=== PATIENT | female | born 1990 ===

== ENCOUNTER 2017-01-17 05:22 | Emergency (ER) | payer BC ==
[2017-01-17] MEDS ORDERED: Sodium Chloride 0.9% 1,000 ML IV STA (05:58)
--- NOTE | 2017-01-17 06:05 | ED PDOC ---
Arrival/HPI <Jonathan Velazquez - Last Filed: 01/17/17 06:22> - General Historian: Patient - History of Present Illness Time/Duration: Other (yesterday) Symptom Course: Intermittent Quality: Burning, Other (sharp) Severity Level: 7 <Remington Watkins - Last Filed: 01/17/17 06:53> - General Chief Complaint: Abdominal Pain Time Seen by Provider: 01/17/17 05:36 - History of Present Illness Narrative History of Present Illness (Text): 01/17/17 05:59 This is a 26 year old female with PMH asthma who presents complaining of epigastric pain. Patient states that it started earlier yesterday. Pain is described as a burning, sharp pain 7/10 currently, but was 10/10 earlier. Patient normally will intermittently gets epigastric pain intermittently; however, the pain had associated nausea and vomiting this time. Nausea/vomiting are not normally experienced. Patient had two episodes of vomiting. The first had food contents and a tinge of blood. The second one was blue which was the color of the Tums she just took. Patient states that sometimes she will experience this pain after meals. Patient denied changes in stool character/ habits. Patient states that she takes Tylenol for her abdominal pain with intermittent relief. PMH: Asthma PSH: Denies Allergies: PCN Social: Denies tobacco, alcohol, drugs. PMD: Dr. Longoria (Remington Watkins) Past Medical History - Provider Review Nursing Documentation Reviewed: Yes - Cardiac Hx Cardiac Disorders: No - Pulmonary Hx Asthma: Yes - Neurological Hx Neurological Disorder: No - HEENT Hx HEENT Disorder: No - Renal Hx Renal Disorder: No - Endocrine/Metabolic Hx Endocrine Disorders: No - Hematological/Oncological Hx Blood Disorders: No - Integumentary Hx Dermatological Disorder: No - Musculoskeletal/Rheumatological Hx Musculoskeletal Disorders: No - Gastrointestinal Hx Gastrointestinal Disorders: No - Genitourinary/Gynecological Hx Genitourinary Disorders: No - Psychiatric Hx Psychophysiologic Disorder: No Hx Substance Use: No <Remington Watkins - Last Filed: 01/17/17 06:53> Family/Social History - Physician Review Nursing Documentation Reviewed: Yes Family/Social History: No Known Family HX Smoking Status: Never Smoked Hx Alcohol Use: No Hx Substance Use: No <Remington Watkins - Last Filed: 01/17/17 06:53> Allergies/Home Meds <Jonathan Velazquez - Last Filed: 01/17/17 06:22> <Remington Watkins - Last Filed: 01/17/17 06:53> Allergies/Adverse Reactions: Allergies Penicillins Allergy (Verified 01/17/17 05:36) RASH Home Medications: Home Meds Medication Instructions Recorded Confirmed Mometasone/Formoterol [Dulera 100 1 pfu INH DAILY 01/17/17 01/17/17 Mcg/5 Mcg Inhaler] Review of Systems - Physician Review All systems were reviewed & negative as marked: Yes <Jonathan Velazquez - Last Filed: 01/17/17 06:22> - Review of Systems Constitutional: Normal Eyes: Normal ENT: Normal Respiratory: Normal Cardiovascular: Normal Gastrointestinal: Abdominal Pain (epigastric), Nausea, Vomiting, Hematemesis ( tinged in the first episode of vomit). absent: Stool Changes, Constipation, Diarrhea Genitourinary Female: Normal Musculoskeletal: Normal Skin: Normal Neurological: Normal Endocrine: Normal Hemo/Lymphatic: Normal Psychiatric: Normal <Remington Watkins S - Last Filed: 01/17/17 06:53> Physical Exam Vital Signs Reviewed: Yes Temperature: Afebrile Blood Pressure: Normal Pulse: Regular Respiratory Rate: Normal Appearance: Positive for: Well-Appearing Pain Distress: None Mental Status: Positive for: Alert and Oriented X 3 - Systems Exam Head: Present: Atraumatic, Normocephalic Pupils: Present: PERRL Extroacular Muscles: Present: EOMI Conjunctiva: Present: Normal Mouth: Present: Moist Mucous Membranes Neck: Present: Normal Range of Motion Respiratory/Chest: Present: Clear to Auscultation, Good Air Exchange. No: Accessory Muscle Use Cardiovascular: Present: Regular Rate and Rhythm, Normal S1, S2 Abdomen: Present: Tenderness (epigastric), Normal Bowel Sounds. No: Distention Upper Extremity: Present: Normal Inspection, NORMAL PULSES. No: Edema Lower Extremity: Present: Normal Inspection, NORMAL PULSES. No: Edema, CALF TENDERNESS Neurological: Present: GCS=15, CN II-XII Intact Skin: Present: Warm, Dry, Normal Color. No: Rashes Psychiatric: Present: Alert, Oriented x 3 <Debbiluis danielRemington Jeronimo - Last Filed: 01/17/17 06:53> Vital Signs Temp Pulse Resp BP Pulse Ox 01/17/17 05:53 99.5 F 79 18 116/61 100 Medical Decision Making <CarolineJonathan - Last Filed: 01/17/17 06:22> - Transfer of Care Patient signed out to Dr:: Dr. Medina Other: Pending labs/ultrasound/re-assess/final disposition <Remington Watkins - Last Filed: 01/17/17 06:53> ED Course and Treatment: Impression: Pt seen and evaluated with medical radiation therapist. Pt, whose past medical history includes asthma, presented for intermittent epigastric pain with nausea and vomiting. Aware and agree with clinical findings, plan, and management. Plan: -- Labs -- IV fluids -- Zofran --Pepcid -- Reassess and disposition (Jonathan Velaqzuez) 01/17/17 06:13 CBC, CMP, NS 1L bolus Zofran 4 mg IV Pepcid 20 mg IV Urine negative Pain did not improve very much with IV Pepcid, so Abdominal US ordered. (Remington Watkins) - Lab Interpretations Lab Results: 01/17/17 06:10 01/17/17 06:10 Lab Results 01/17/17 06:10: Sodium 139, Potassium 3.9, Chloride 102, Carbon Dioxide 27, Anion Gap 14, BUN 14, Creatinine 0.8, Est GFR ( Amer) > 60, Est GFR (Non- Af Amer) > 60, Random Glucose 86, Calcium 8.7, Total Bilirubin 0.8, AST 42 H, ALT 88 H, Alkaline Phosphatase 82, Total Protein 7.2, Albumin 4.0, Globulin 3.2 , Albumin/Globulin Ratio 1.3 01/17/17 06:10: WBC 7.8, RBC 4.80, Hgb 14.2, Hct 40.9, MCV 85.2, MCH 29.6, MCHC 34.7, RDW 13.1, Plt Count 216, MPV 10.0, Gran % 82.0 H, Lymph % (Auto) 11.8 L, [place]kin % (Auto) 4.6, Eos % (Auto) 1.5, Baso % (Auto) 0.1, Gran # 6.37, Lymph # 0.9 L, [place]kin # 0.4, Eos # 0.1, Baso # 0.01 - RAD Interpretation Radiology Orders: 01/17/17 06:46 ABDOMEN COMPLETE [US] Stat - Medication Orders Current Medication Orders: Sodium Chloride (Sodium Chloride 0.9%) 1,000 mls @ 999 mls/hr IV .Q1H1M STA Stop: 01/17/17 06:58 Last Admin: 01/17/17 06:16 Dose: 999 mls/hr Discontinued Medications Famotidine (Pepcid) 20 mg IVP STAT STA Stop: 01/17/17 05:59 Last Admin: 01/17/17 06:16 Dose: 20 mg Ondansetron HCl (Zofran Inj) 4 mg IVP STAT STA Stop: 01/17/17 05:59 Last Admin: 01/17/17 06:16 Dose: 4 mg - PA / [employer] / Resident Statement / has reviewed & agrees with the documentation as recorded. / has examined the patient and agrees with the treatment plan. <Jonathan Velazquez - Last Filed: 01/17/17 06:22> Disposition/Present on Arrival <Jonathan Velazquez - Last Filed: 01/17/17 06:22> - Present on Arrival Any Indicators Present on Arrival: No History of DVT/PE: No History of Uncontrolled Diabetes: No Urinary Catheter: No History of Decub. Ulcer: No History Surgical Site Infection Following: None - Disposition Have Diagnosis and Disposition been Completed?: No Disposition Time: 07:00 <Remington Watkins - Last Filed: 01/17/17 06:53> - Disposition Diagnosis: Abdominal pain Condition: STABLE Referrals: Jigna Longoria MD [Medical Doctor] - Follow up with primary Forms: [email or web address] (Japanese)
[2017-01-17 06:20] LABS: BASO # 0.01 K/mm3 (0.0-2.0); BASO % 0.1 % (0.0-3.0); EOS # 0.1 (0.0-0.7); EOS % 1.5 % (1.5-5.0); GRAN # 6.37 (1.4-6.5); HEMATOCRIT 40.9 % (36.0-48.0); LYMPH # 0.9 (1.2-3.4); LYMPH % 11.8 % (22.0-35.0); MEAN CELL VOLUME 85.2 fl (80.0-105.0); MEAN CORPUSCULAR HEMOGLOBIN 29.6 pg (25.0-35.0); MEAN CORPUSCULAR HGB CONC 34.7 g/dl (31.0-37.0); MONO # 0.4 (0.1-0.6); MONO % 4.6 % (1.0-6.0); RED CELL DISTRIBUTION WIDTH 13.1 % (11.5-14.5); WHITE BLOOD COUNT 7.8 10^3/ul (4.5-11.0)
[2017-01-17 06:31] LABS: ALB/GLOB RATIO 1.3 (1.1-1.8); ALKALINE PHOSPHATASE 82 U/L (38-126); ALT/SGPT 88 U/L (7-56); AST/SGOT 42 U/L (14-36); BILIRUBIN,TOTAL 0.8 mg/dL (0.2-1.3); BLOOD UREA NITROGEN 14 mg/dL (7-21); CALCIUM 8.7 mg/dL (8.4-10.5); CARBON DIOXIDE 27 mmol/L (21-33); CHLORIDE 102 mmol/L (98-107); GFR AFRICAN-AMERICAN > 60; GLUCOSE,RANDOM 86 mg/dL (70-110); POTASSIUM 3.9 mmol/L (3.6-5.0); SODIUM 139 mmol/L (132-148); TOTAL PROTEIN 7.2 g/dL (5.8-8.3)
--- NOTE | 2017-01-17 07:23 | US ---
HISTORY: abdominal pain COMPARISON: None. TECHNIQUE: Sonographic evaluation of the abdomen. FINDINGS: LIVER: Measures 17.7 cm. Normal echogenicity of the liver parenchyma. No mass. No intrahepatic bile duct dilatation. GALLBLADDER: Unremarkable. No gallstones. COMMON BILE DUCT: Measures 6 mm. No stones. No dilatation. PANCREAS: Unremarkable as visualized. No mass. No ductal dilatation. RIGHT KIDNEY: Measures 11.2cm. Normal echogenicity. No calculus, mass, or hydronephrosis. LEFT KIDNEY: Measures 11.4cm. Normal echogenicity. No calculus, mass, or hydronephrosis. SPLEEN: Normal in size and contour. No mass. AORTA: No aneurysmal dilatation. IVC: Unremarkable. OTHER FINDINGS: None. IMPRESSION: Unremarkable abdominal ultrasound examination. No evidence of cholelithiasis or cholecystitis.
--- NOTE | 2017-01-17 07:30 | ED PDOC ---
Physical Exam Vital Signs Reviewed: Yes Vital Signs Temp Pulse Resp BP Pulse Ox 01/17/17 08:40 98.6 F 73 16 100/60 98 01/17/17 07:36 58 L 16 100/55 L 99 01/17/17 05:53 99.5 F 79 18 116/61 100 Temperature: Afebrile Blood Pressure: Normal Pulse: Regular Respiratory Rate: Normal Appearance: Positive for: Well-Appearing, Non-Toxic, Comfortable Pain Distress: None Mental Status: Positive for: Alert and Oriented X 3 Medical Decision Making ED Course and Treatment: 01/17/17 07:00 Case signed out to me from Dr. Velazquez. Pending Ultrasound and disposition. 01/17/17 07:24 Abdomen Ultrasound Creator : Mayank Cortez MD IMPRESSION: Unremarkable abdominal ultrasound examination. No evidence of cholelithiasis or cholecystitis. 01/17/17 08:35 On re-evaluation, patient feels better and is in no acute distress. I have discussed the results and plan with the patient, (pt aware of leevated lfts and need for outpt gi follow up) who expresses understanding. Patient in agreement with plan to be discharged home. Patient is stable for discharge. Patient was instructed to follow up with physician/clinic in 1-2 days or return if symptoms worsen or new concerning symptoms arise. 01/17/17 13:44 - Lab Interpretations Lab Results: 01/17/17 06:10 01/17/17 06:10 Lab Results 01/17/17 06:10: Sodium 139, Potassium 3.9, Chloride 102, Carbon Dioxide 27, Anion Gap 14, BUN 14, Creatinine 0.8, Est GFR ( Amer) > 60, Est GFR (Non- Af Amer) > 60, Random Glucose 86, Calcium 8.7, Total Bilirubin 0.8, AST 42 H, ALT 88 H, Alkaline Phosphatase 82, Total Protein 7.2, Albumin 4.0, Globulin 3.2 , Albumin/Globulin Ratio 1.3 01/17/17 06:10: WBC 7.8, RBC 4.80, Hgb 14.2, Hct 40.9, MCV 85.2, MCH 29.6, MCHC 34.7, RDW 13.1, Plt Count 216, MPV 10.0, Gran % 82.0 H, Lymph % (Auto) 11.8 L, [place] % (Auto) 4.6, Eos % (Auto) 1.5, Baso % (Auto) 0.1, Gran # 6.37, Lymph # 0.9 L, [place] # 0.4, Eos # 0.1, Baso # 0.01 - RAD Interpretation Radiology Orders: 01/17/17 06:46 ABDOMEN COMPLETE [US] Stat - Medication Orders Current Medication Orders: Discontinued Medications Famotidine (Pepcid) 20 mg IVP STAT STA Stop: 01/17/17 05:59 Last Admin: 01/17/17 06:16 Dose: 20 mg Sodium Chloride (Sodium Chloride 0.9%) 1,000 mls @ 999 mls/hr IV .Q1H1M STA Stop: 01/17/17 06:58 Last Admin: 01/17/17 06:16 Dose: 999 mls/hr Ondansetron HCl (Zofran Inj) 4 mg IVP STAT STA Stop: 01/17/17 05:59 Last Admin: 01/17/17 06:16 Dose: 4 mg - Scribe Statement The provider has reviewed the documentation as recorded by the Willem Parada Provider Scribe Attestation: All medical record entries made by the Willem were at my direction and personally dictated by me. I have reviewed the chart and agree that the record accurately reflects my personal performance of the history, physical exam, medical decision making, and the department course for this patient. I have also personally directed, reviewed, and agree with the discharge instructions and disposition. Disposition/Present on Arrival - Present on Arrival Any Indicators Present on Arrival: No History of DVT/PE: No History of Uncontrolled Diabetes: No Urinary Catheter: No History of Decub. Ulcer: No History Surgical Site Infection Following: None - Disposition Have Diagnosis and Disposition been Completed?: Yes Diagnosis: Abdominal pain Disposition: HOME/ ROUTINE Disposition Time: 08:00 Patient Plan: Discharge Condition: STABLE Discharge Instructions (ExitCare): Acute Abdominal Pain (ED) Additional Instructions: follow up with your primary doctor in 1-2 days return to the ED with any worsening or concerning symptoms follow up with GI doctor for your elevated liver function test Referrals: Jigna Longoria MD [Primary Care Provider] - Follow up with primary Kameron Claros MD [Staff Provider] - Follow up with primary Forms: [employer] (Romanian)
[2017-01-17 07:40] VITALS: RESP 16
[2017-01-17 08:41] VITALS: BP 100/60; PULSE 73; TEMP 98.6; O2SAT 98
== END 2017-01-17 08:50 | disposition home or self-care (01) ==
LOC: ED 05:22
DX: R10.9 Unspecified abdominal pain (principal)
CPT/HCPCS: 76700; 80053; 85025; 96374; 96375; 99284; J2405; J7040

== ENCOUNTER 2017-02-07 11:39 | Day surgery (SDC) | payer BC ==
[2017-01-29 14:06] VITALS: BMI 30.9
[2017-02-07] MEDS ORDERED: Sodium Chloride 0.9% 1,000 ML IV SCH (12:45)
[2017-02-07] MEDS ORDERED: Albuterol HFA 90 mcg/actuation (8 g) ONE (13:57)
[2017-02-07] MEDS ORDERED: Propofol 10 mg/ml Inj (20 ML) ONE (13:57)
[2017-02-07 14:59] VITALS: BP 119/70; PULSE 56; RESP 16; TEMP 98; O2SAT 100
== END 2017-02-07 15:12 | disposition home or self-care (01) ==
LOC: ENDO 11:39
PROVIDERS: ATTEND Internal Medicine
DX: K29.70 Gastritis, unspecified, without bleeding (principal); R10.13 Epigastric pain; Z80.0 Family history of malignant neoplasm of digestive organs
CPT/HCPCS: 43239; 84703; 88305; 88342; J2001; J2704; J3010; J7040 ×2

== ENCOUNTER 2017-03-10 01:56 | Emergency (ER) | payer BC ==
[2017-03-10 02:13] VITALS: BMI 28.3
--- NOTE | 2017-03-10 02:26 | ED PDOC ---
Arrival/HPI - General Chief Complaint: Upper Extremity Problem/Injury Time Seen by Provider: 03/10/17 02:20 Historian: Patient - History of Present Illness Narrative History of Present Illness (Text): 03/10/17 02:26 Radha Zamora is a 26 year old female who presents to the Emergency department complaining of left 3rd finger pain status post fall tonight. Patient states she tripped and fell at home 2 hours prior and jammed her left 3rd finger. Patient now complaining of pain with swelling to the area. Patient denies any weakness/numbness/tingling in the extremity, back pain, neck pain, other trauma/ injury, or any other complaints. Time/Duration: 1-3 hours (2 hours) Symptom Onset: Sudden Symptom Course: Unchanged Activities at Onset: Light Context: Home, Tripped Past Medical History - Provider Review Nursing Documentation Reviewed: Yes - Travel History If Yes, travel location?: [place] - Cardiac Hx Pacemaker: No - Pulmonary Hx Asthma: Yes - Neurological Hx Neurological Disorder: No - HEENT Hx HEENT Disorder: No - Renal Hx Renal Disorder: No - Endocrine/Metabolic Hx Endocrine Disorders: No - Hematological/Oncological Hx Blood Transfusions: No Hx Blood Transfusion Reaction: No - Integumentary Hx Dermatological Disorder: No - Musculoskeletal/Rheumatological Hx Musculoskeletal Disorders: No - Gastrointestinal Hx Gastrointestinal Disorders: No - Genitourinary/Gynecological Hx Genitourinary Disorders: No - Psychiatric Hx Emotional Abuse: No Hx Physical Abuse: No Hx Substance Use: No - Anesthesia Hx Anesthesia Reactions: No Hx Malignant Hyperthermia: No - Suicidal Assessment Feels Threatened In Home Enviroment: No Family/Social History - Physician Review Nursing Documentation Reviewed: Yes Family/Social History: Unknown Family HX Smoking Status: Never Smoked Hx Alcohol Use: Yes (SOCIALLY) Frequency of alcohol use: Socially Hx Substance Use: No Allergies/Home Meds Allergies/Adverse Reactions: Allergies Penicillins Allergy (Verified 03/10/17 02:13) RASH Home Medications: Home Meds Medication Instructions Recorded Confirmed Mometasone/Formoterol [Dulera 100 1 pfu INH DAILY 01/17/17 02/07/17 Mcg/5 Mcg Inhaler] Review of Systems - Physician Review All systems were reviewed & negative as marked: Yes - Review of Systems Constitutional: Normal. absent: Fevers Eyes: Normal ENT: Normal Respiratory: Normal. absent: SOB, Cough Cardiovascular: Normal. absent: Chest Pain Gastrointestinal: Normal. absent: Abdominal Pain, Diarrhea, Vomiting Genitourinary Female: Normal. absent: Dysuria, Frequency, Hematuria, Urine Output Changes Musculoskeletal: Other (+left 3rd finger swelling/pain). absent: Back Pain, Neck Pain Skin: Normal. absent: Rash Neurological: Normal. absent: Headache, Dizziness Endocrine: Normal Hemo/Lymphatic: Normal Psychiatric: Normal Physical Exam Vital Signs Reviewed: Yes Vital Signs Temp Pulse Resp BP Pulse Ox 03/10/17 02:30 98.7 F 92 H 18 114/70 98 Temperature: Afebrile Blood Pressure: Normal Pulse: Regular Respiratory Rate: Normal Appearance: Positive for: Well-Appearing, Non-Toxic, Comfortable Pain Distress: None Mental Status: Positive for: Alert and Oriented X 3 - Systems Exam Head: Present: Atraumatic, Normocephalic Pupils: Present: PERRL Extroacular Muscles: Present: EOMI Conjunctiva: Present: Normal Mouth: Present: Moist Mucous Membranes Upper Extremity: Present: Swelling (3rd left digit swollen over PIP). No: Cyanosis, Edema Neurological: Present: GCS=15, CN II-XII Intact, Speech Normal Skin: Present: Warm, Dry, Normal Color. No: Rashes Psychiatric: Present: Alert, Oriented x 3, Normal Insight, Normal Concentration Medical Decision Making ED Course and Treatment: 03/10/17 02:26 Impression: 26 year old female complaining of left 3rd finger pain s/p fall 2 hours MANAGER CASE. Differential Diagnosis included but are not limited to: fracture vs. sprain vs. contusion Plan: -- XR Left Hand -- Reassess and disposition Progress Notes: 03/10/17 03:30 Reviewed radiology, XR Left Hand shows avulsion fracture of the left 3rd digit. 03/10/17 03:46 On reevaluation the patient feels better and is in no acute distress. I have discussed the results and plan with the patient, who expresses understanding. Patient given the opportunity to ask question, all questions were answered and there is agreement with the plan to discharge the patient home. Patient is stable for discharge. Patient was instructed to follow up with physician/clinic in 1-2 days or return if symptoms persist/worsen or new concerning symptoms arise. - RAD Interpretation Radiology Orders: 03/10/17 02:29 HAND LEFT 3RD DIGIT (FINGER) [RAD] Stat - Scribe Statement The provider has reviewed the documentation as recorded by the Willem Pappas Provider Scribe Attestation: All medical record entries made by the Scribe were at my direction and personally dictated by me. I have reviewed the chart and agree that the record accurately reflects my personal performance of the history, physical exam, medical decision making, and the department course for this patient. I have also personally directed, reviewed, and agree with the discharge instructions and disposition. Disposition/Present on Arrival - Present on Arrival Any Indicators Present on Arrival: No History of DVT/PE: No History of Uncontrolled Diabetes: No Urinary Catheter: No History of Decub. Ulcer: No History Surgical Site Infection Following: None - Disposition Have Diagnosis and Disposition been Completed?: Yes Diagnosis: Jammed finger (interphalangeal joint), Finger fracture, left Disposition: HOME/ ROUTINE Disposition Time: 03:46 Condition: GOOD Discharge Instructions (ExitCare): Jammed Finger (ED), Finger Fracture (ED) Additional Instructions: use splint follow up with orthopedics Referrals: Jigna Longoria MD [Primary Care Provider] - Follow up with primary Sara Mccarty MD [Staff Provider] - Follow up with primary Forms: [employer] (Polish)
[2017-03-10 02:47] VITALS: BP 114/70; PULSE 92; RESP 18; TEMP 98.7; O2SAT 98
--- NOTE | 2017-03-10 10:29 | RAD ---
PROCEDURE: Left middle finger radiographs. HISTORY: injury COMPARISON: None. TECHNIQUE: AP radiograph of the left hand, as well as spot oblique and lateral images of left middle finger were obtained. FINDINGS: LEFT MIDDLE FINGER: There is an avulsion or chip fracture seen related to the distal metaphysis the proximal phalanx left long finger. No dislocation or subluxation. Local soft tissue edema is present. No large fractures appreciated throughout the left long finger. JOINTS: Normal. SOFT TISSUES: Normal. OTHER FINDINGS: None. IMPRESSION: Chip or avulsion fracture related to the distal portion of the proximal phalanx left long finger without dislocation.
== END 2017-03-10 03:59 | disposition home or self-care (01) ==
LOC: ED 01:56
DX: S62.613A Displaced fracture of proximal phalanx of left middle finger, initial encounter for closed fracture (principal); W01.0XXA Fall on same level from slipping, tripping and stumbling without subsequent striking against object, initial encounter; Y92.009 Unspecified place in unspecified non-institutional (private) residence as the place of occurrence of the external cause; Z88.0 Allergy status to penicillin